=== PATIENT | female | born 1955 | race African-American/Black ===

== ENCOUNTER 2017-08-14 14:07 | Inpatient (IN) | payer MEDICARE ==
[~2017-08-14] VITALS: Ht 167.6 cm; Wt 58.7 kg
[2017-08-14 14:09] VITALS: BP 124/66
--- NOTE | 2017-08-14 15:08 | NUR ---
Patient BIBA to bed 4 at this time.
--- NOTE | 2017-08-14 15:10 | NUR ---
61/F BIBA FOR BS; HI. 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 SKIN IS PINK/WARM/DRY; PT STS PAIN 5TH L TOE AMPUTED. AAOX4 WITH EVEN AND STEADY GAIT; LUNGS CLEAR BL; PT DENIES ANY FEVER, CP, SOB, OR COUGH AT THIS TIME; PATIENT STATES PAIN OF 10/10 AT THIS TIME; PATIENT POSITIONED FOR COMFORT; HOB ELEVATED; BEDRAILS UP X2; BED DOWN. ER MD MADE AWARE OF PT STATUS.
[2017-08-14] MEDS ORDERED: NACL 0.9% 1,000 ML IV ONE ×2 (15:15→17:25)
--- NOTE | 2017-08-14 15:24 | NUR ---
X RAY AT BEDSIDE
--- NOTE | 2017-08-14 15:37 | NUR ---
PT TAKEN TO CT VIA GUJESSIE, ACCOMPANIED BY POWER SUPPLY ENGINEER.
[2017-08-14 15:46] LABS: BASOPHILS # (AUTO) 0.1 K/uL (0.00-0.22); BASOPHILS % (AUTO) 1.3 % (0.0-2.0); EOSINOPHILS # (AUTO) 0.2 K/uL (0-0.4); EOSINOPHILS % (AUTO) 2.3 % (0.0-4.0); HEMOGLOBIN 10.1 g/dL (12.0-16.0); LYMPHOCYTES % (AUTO) 25.5 % (20.5-51.1); MEAN CORPUSCULAR HEMOGLOBIN 24 pg (27-31); MEAN CORPUSCULAR HGB CONC 32 g/dL (33-37); MEAN CORPUSCULAR VOLUME 74 fL (80-94); MONOCYTES # (AUTO) 0.7 K/uL (0.8-1.0); MONOCYTES % (AUTO) 8.7 % (1.7-9.3); NEUTROPHILS % (AUTO) 62.2 % (42.2-75.2); PLATELET COUNT (AUTO) 161 K/uL (140-450); RED CELL DISTRIBUTION WIDTH 13.4 % (11.6-13.7)
[2017-08-14 16:04] LABS: ANION GAP 10.3 (8-16); CREATININE 1.1 mg/dL (0.6-1.3); POTASSIUM 4.3 mmol/L (3.5-5.1); TOTAL BILIRUBIN 0.7 mg/dL (0.0-1.0)
--- NOTE | 2017-08-14 16:41 | NUR ---
Patient appears to be resting comfortably in bed. P 115, BP 147/65 PULSE OX 100% Respirations even and unlabored. WILL CONTINUE TO MONITOR.
[2017-08-14 17:06] LABS: APPEARANCE,URINE CLEAR (CLEAR); BILIRUBIN,URINE NEGATIVE (NEGATIVE); BLOOD, URINE NEGATIVE (NEGATIVE); COLOR,URINE YELLOW (YELLOW); LEUKOCYTE ESTERASE ,URINE NEGATIVE (NEGATIVE); NITRITE, URINE NEGATIVE (NEGATIVE); UGLUCOSE 3+ (NEGATIVE)
[2017-08-14 17:13] LABS: BARBITURATE, URINE NEG. ng/ml (NEG <=200); BENZODIAZEPINE, URINE NEG. ng/mL (NEG <=200); CANNABINOID, URINE NEG. ng/mL (NEG <=50); COCAINE, URINE NEG. ng/mL (NEG <=300); OPIATE, URINE NEG. ng/mL (NEG <=2000); PHENCYCLIDINE SCREEN,URINE NEG. ng/mL (NEG <=25)
--- NOTE | 2017-08-14 17:16 | NUR ---
IVF 0.9 % NSS 2000 ML FINIEHED. BS 357; NOTIFIED Dr. Garcia . 0/9% NSS 1000 ML ORDER PER ORAL.
[2017-08-14 17:29] LABS: RBC,URINE 0-5 (RARE) /HPF (0-5); WBC,URINE 0-5 (RARE) /HPF (0-5)
[2017-08-14] MEDS ORDERED: INSULIN HUMAN REGULAR 100 UNITS/ML 10 ML VIAL SUBQ ONE (17:35)
--- NOTE | 2017-08-14 17:51 | NUR ---
PT URENATED 2 TIMES, BM 1 TIME.
--- NOTE | 2017-08-14 18:05 | NUR ---
PT CAN'T REMEMBER HOME MED; SISTER WILL BRINGMEDS LATER.
--- NOTE | 2017-08-14 18:07 | NUR ---
Patient will be admitted to care of DR BLANKENSHIP. Admited to TELE. Will go to room 110A. Belongings list completed. Report to CASTILLO RIVERS.
--- NOTE | 2017-08-14 18:07 | NUR ---
GAVE REPORT TO CASTILLO RIVERS.
[2017-08-14] MEDS ORDERED: DEXTROSE 50% 50 ML SYR IVP PRN (18:15)
[2017-08-14 18:20] LABS: PROTHROMBIN TIME 10.5 secs (10.8-13.4)
[2017-08-14] MEDS ORDERED: INSULIN DETEMIR 100 UNITS/ML 10 ML VIAL SUBQ SCH (18:24)
[2017-08-14 18:30] VITALS: BP 134/68
[2017-08-14 18:32] LABS: AMYLASE 29 U/L (25-115); FREE T4 (FREE THYROXINE) 7.53 ng/dL (0.76-1.46); HDL CHOLESTEROL 36 mg/dL (40-60); LDL (CALC) 35 mg/dL (60-100); LIPASE 114 U/L (73-393); MAGNESIUM 1.5 mg/dL (1.8-2.4); PHOSPHORUS 4.6 mg/dL (2.5-4.9); TRIGLYCERIDES 191 mg/dL (30-150)
--- NOTE | 2017-08-14 18:40 | NUR ---
PATIENT ARRIVED ON UNIT VIA BED/GURNEY. TRANSFERRED PATIENT TO UNIT BED. PATIENT IN STABLE CONDITION. V/S STABLE, BP: 134/68, HR:105, TEMP:98.7, RR:18, SPO02: 100% ROOM AIR. NO DISTRESS NOTED. RESPIRATIONS EVEN, UNLABORED, ON ROOM AIR. AAOX4, SKIN COLOR APPROPRIATE TO ETHNICITY, WARM TO TOUCH. SKIN IS INTACT, NO WOUNDS/LESIONS NOTED THROUGHOUT BODY. LEFT 5TH TOE AMUPTATION NOTED. PATIENT IS BLIND ON BOTH EYES. IV ON LEFT FA 20 G IS INTACT, PATENT, AND INFUSING WITH IV FLUIDS PER ORDERS. SAFETY MEASURES IN PLACE, CALL LIGHT WITHIN REACH, FALL PREVENTION PER PROTOCOL INITIATED. WILL CONTINUE TO MONITOR.
[2017-08-14 18:54] LABS: THYROID STIMULATING HORMONE < 0.01 uIU/mL (0.34-3.74)
--- NOTE | 2017-08-14 19:25 | NUR ---
GAVE REPORT TO HUMAN RESOURCE ADVISER NURSE FOR CONTINUITY OF CARE. PATIENT IN STABLE CONDITION.
[2017-08-14] MEDS ORDERED: MAG SULF 2000 MG/WATER PREMIX 50 ML IV SCH (19:30)
--- NOTE | 2017-08-14 19:30 | NUR ---
RECEIVED PT FROM DAY SHIFT NURSE PT LEGALLY BLIND AAOX4 COMPLAINT OF GENERALIZED WEAKNESS, IV ON LEFT WRIST INFUSING WELL ON TELEMETRY ST SKIN IS INTACT PT IS ORIENTED TO THE FLOOR CALL LIGHT WITHIN REACH
[2017-08-14] MEDS: NACL 0.9% 1,000 ML IV SCH (19:35)
[2017-08-14] MEDS: DOCUSATE SODIUM 100 MG GELCAP PO SCH (21:10)
[2017-08-14] MEDS: BLOOD GLUCOSE MONITORING 1 DEV DEV FS SCH (21:33)
--- NOTE | 2017-08-14 21:33 | NUR ---
BLOOD SUGAR TEST 254 COVERAGE WITH 6 UNITS HUMALOG SUBQ ON RT ARM, DR RESIDENT CELESTE IS AWARE TO NOT GIVE LEVEMIR AT THIS TIME . PENDING FOR HOME MED RECON
[2017-08-14] MEDS: INSULIN LISPRO SLIDING SCALE 100 UNITS/ML VIAL SUBQ PRN (21:36)
[2017-08-14] MEDS ORDERED: ATA10 PO (21:52)
[2017-08-14] MEDS ORDERED: LOSA50TA39 PO (21:54)
[2017-08-14] MEDS ORDERED: METH-426 PO (22:03)
[2017-08-14] MEDS ORDERED: ASPI81CT89 PO (22:06)
[2017-08-14] MEDS ORDERED: ATEN50TA2 PO (22:07)
[2017-08-14] MEDS ORDERED: HYDR28CR38 TP (22:09)
[2017-08-15] VITALS: BP 134/58
--- NOTE | 2017-08-15 | NUR ---
BILATERAL LE US REPORT WAS NEGATIVE FOR DVT
--- NOTE | 2017-08-15 03:00 | NUR ---
PT HAS BEEN ASSISTING USING BEDPAN VOIDING WELL IV ON LEFT WRIST INFUSING WELL IV FLUIDS DENIES ANY PAIN PT HAS BEEN SLEEPING WELL
[2017-08-15] MEDS: ACETAMINOPHEN 325 MG TAB PO PRN ×2 (03:56→13:28)
[2017-08-15 04:00] VITALS: BP 133/55
--- NOTE | 2017-08-15 05:00 | NUR ---
SPONGE BATH GIVEN, LINEN CHANGED REPOSITIONED PT HAS BEE USING BEDPAN , CONTINENT
--- NOTE | 2017-08-15 06:20 | NUR ---
BLOOD SUGAR TEST 134 NOT COVERAGE
[2017-08-15] MEDS: BLOOD GLUCOSE MONITORING 1 DEV DEV FS SCH ×4 (06:39→20:13)
[2017-08-15 06:47] LABS: BASOPHILS # (AUTO) 0.2 K/uL (0.00-0.22); BASOPHILS % (AUTO) 1.9 % (0.0-2.0); EOSINOPHILS # (AUTO) 0.2 K/uL (0-0.4); EOSINOPHILS % (AUTO) 2.2 % (0.0-4.0); HEMATOCRIT 26.4 % (36-48); HEMOGLOBIN 8.5 g/dL (12.0-16.0); LYMPHOCYTES # (AUTO) 2.5 K/uL (2.5-16.5); LYMPHOCYTES % (AUTO) 29.3 % (20.5-51.1); MEAN CORPUSCULAR HEMOGLOBIN 24 pg (27-31); MEAN CORPUSCULAR HGB CONC 32 g/dL (33-37); MEAN CORPUSCULAR VOLUME 75 fL (80-94); MONOCYTES # (AUTO) 0.7 K/uL (0.8-1.0); MONOCYTES % (AUTO) 8.6 % (1.7-9.3); NEUTROPHILS # (AUTO) 4.8 K/uL (1.8-7.7); PLATELET COUNT (AUTO) 142 K/uL (140-450); RED BLOOD CELL COUNT(AUTO) 3.55 MIL/uL (4.20-5.40); WHITE BLOOD COUNT (AUTO) 8.4 K/uL (4.8-10.8)
[2017-08-15] MEDS ORDERED: FERRIC GLUCONATE 125 MG in NACL 0.9% 100 ML IV SCH (07:00)
[2017-08-15 07:13] LABS: ANION GAP 9.3 (8-16); CARBON DIOXIDE 26.5 mmol/L (21-32); CREATININE 0.8 mg/dL (0.6-1.3); POTASSIUM 3.8 mmol/L (3.5-5.1)
--- NOTE | 2017-08-15 07:15 | NUR ---
RECEIVED REPORT FROM EDUCATION MANAGER RN. PATIENT IS AAOX4, IS LEGALLY BLIND, RESPIRATORY EFFORT IS EVEN AND UNLABORED. HAS TELE MONITOR ON. IS NS INFUSING TO LEFT FA 20G AT 80 ML/HR. IV SITE IS CLEAN, DRY, PATENT AND INTACT. NO SIGNS AND SYMPTOMS OF DISTRESS NOTED AT THIS TIME. DISCUSSED PLAN OF CARE WITH PATIENT AND SHE VERBALIZED UNDERSTANDING. BED IS IN LOWEST POSITION, SIDERAILS UP X2, FALL RISK INITIATED, CALL LIGHT PLACED WITHIN REACH AND LET PATIENT KNOW WHERE IT IS. WILL CONTINUE TO MONITOR.
[2017-08-15 07:24] LABS: MAGNESIUM 1.8 mg/dL (1.8-2.4); PHOSPHORUS 3.7 mg/dL (2.5-4.9)
[2017-08-15 08:00] VITALS: BP 135/55
[2017-08-15] MEDS: ASPIRIN 81 MG TAB.CHEW PO SCH (08:47)
[2017-08-15] MEDS: DOCUSATE SODIUM 100 MG GELCAP PO SCH ×2 (08:47→20:51)
[2017-08-15] MEDS: hydrOXYzine HCL 10 MG TAB PO SCH ×3 (08:48→16:23)
[2017-08-15] MEDS: LOSARTAN 50 MG TAB PO SCH (08:48)
[2017-08-15] MEDS: METHIMAZOLE 5 MG TAB PO SCH ×2 (08:49→20:51)
[2017-08-15] MEDS: ATENOLOL 50 MG TAB PO SCH (08:49)
--- NOTE | 2017-08-15 09:21 | NUR ---
CARLIN NOTE PER ELEMENTARY SCHOOL ART TEACHER KHLOE, REVIEWS SHOULD ONLY BE SENT TO [facility]. INITIAL REVIEW FAXED TO [facility] [phone] CARLIN Campuzano PH# [phone].
[2017-08-15] MEDS: NACL 0.9% 1,000 ML IV SCH ×2 (10:35→19:46)
[2017-08-15 10:48] LABS: TRANSFERRIN 84 mg/dL (200-370)
--- NOTE | 2017-08-15 11:15 | NUR ---
PATIENT SLEEPING. WILL CONTINUE TO MONITOR.
--- NOTE | 2017-08-15 11:30 | NUR ---
BLOOD SUGAR AT 144, NO INSULIN COVERAGE NEEDED AT THIS TIME. NO SIGNS AND SYMPTOMS OF ACUTE DISTRESS NOTED.
[2017-08-15 12:00] VITALS: BP 117/44
[2017-08-15 12:40] LABS: FERRITIN 397 ng/mL (15-150)
--- NOTE | 2017-08-15 13:03 | NUR ---
PATIENT LAYING IN BED, STATED SHE NEEDED TO USE THE BEDPAN. SHE TOLERATED WELL. WILL CONTINUE TO MONITOR.
[2017-08-15 16:00] VITALS: BP 143/64
[2017-08-15] MEDS: HYDROcodone/APAP 7.5/325 MG 1 TAB PO PRN ×2 (16:23→21:26)
[2017-08-15] MEDS: INSULIN LISPRO SLIDING SCALE 100 UNITS/ML VIAL SUBQ PRN ×2 (16:37→20:52)
[2017-08-15] MEDS: ONDANSETRON 4 MG/2 ML VIAL IVP PRN (17:09)
--- NOTE | 2017-08-15 19:35 | NUR ---
RECEIVED REPORT FROM DAY RN. PATIENT WAS SLEEPING BUT EASY TO AROUSE, RESPIRATION EVEN AND UNLABORED, NO S/S OF DISTRESS NOTED, DENIES PAIN AT THIS TIME. IV PATENT AND INTACT, INFUSING NS AT 80ML/HR, CALL LIGHT WITHIN REACH, SAFETY MEASURE ENSURED, WILL CONTINUE TO MONITOR.
[2017-08-15 19:57] VITALS: BP 125/54
--- NOTE | 2017-08-15 21:30 | NUR ---
PATIENT STATED HEADACHE 03/16, NORCO GIVEN ORDERED, CALL LIGHT WITHIN REACH, SAFETY MEASURE ENSURED, WILL CONTINUE TO MONITOR.
--- NOTE | 2017-08-15 23:55 | NUR ---
PATIENT WAS SLEEPING IN BED, EASY TO AROUSE, VITAL SIGNS WITHIN NORMAL RANGE. NO S/S OF ACUTE DISTRESS NOTED, RESPIRATION EVEN AND UNLABORED, CALL LIGHT WITHIN REACH, SAFETY MEASURE ENSURED, WILL CONTINUE TO MONITOR.
[2017-08-16] VITALS: BP 129/57
--- NOTE | 2017-08-16 02:50 | NUR ---
PATIENT IS SLEEPING IN BED, NO S/S OF ACUTE DISTRESS NOTED, RESPIRATION EVEN AND UNLABORED, CALL LIGHT WITHIN REACH, SAFETY MEASURE ENSURED, WILL CONTINUE TO MONITOR.
[2017-08-16 03:58] VITALS: BP 117/57
--- NOTE | 2017-08-16 04:04 | NUR ---
NO CHANGE IN CONDITION, PATIENT WAS SLEEPING IN BED, EASY TO AROUSE. NO S/S OF ACUTE DISTRESS NOTED, RESPIRATION EVEN AND UNLABORED, CALL LIGHT WITHIN REACH, SAFETY MEASURE ENSURED, WILL CONTINUE TO MONITOR.
[2017-08-16] MEDS: ACETAMINOPHEN 325 MG TAB PO PRN (04:27)
--- NOTE | 2017-08-16 06:26 | NUR ---
DR. FRY CAME AND EXAMINED PATIENT AT THE BEDSIDE, NO NEW ORDER RECEIVED AT THIS TIME.
[2017-08-16] MEDS: BLOOD GLUCOSE MONITORING 1 DEV DEV FS SCH ×2 (06:32→11:20)
[2017-08-16 06:38] LABS: BASOPHILS # (AUTO) 0.1 K/uL (0.00-0.22); BASOPHILS % (AUTO) 1.6 % (0.0-2.0); EOSINOPHILS # (AUTO) 0.3 K/uL (0-0.4); EOSINOPHILS % (AUTO) 2.9 % (0.0-4.0); HEMATOCRIT 27.1 % (36-48); HEMOGLOBIN 8.8 g/dL (12.0-16.0); LYMPHOCYTES # (AUTO) 1.9 K/uL (2.5-16.5); LYMPHOCYTES % (AUTO) 22.1 % (20.5-51.1); MEAN CORPUSCULAR HEMOGLOBIN 24 pg (27-31); MEAN CORPUSCULAR HGB CONC 32 g/dL (33-37); MEAN CORPUSCULAR VOLUME 74 fL (80-94); MONOCYTES # (AUTO) 0.7 K/uL (0.8-1.0); MONOCYTES % (AUTO) 8.1 % (1.7-9.3); NEUTROPHILS # (AUTO) 5.7 K/uL (1.8-7.7); NEUTROPHILS % (AUTO) 65.3 % (42.2-75.2); PLATELET COUNT (AUTO) 135 K/uL (140-450); RED BLOOD CELL COUNT(AUTO) 3.65 MIL/uL (4.20-5.40); WHITE BLOOD COUNT (AUTO) 8.7 K/uL (4.8-10.8)
[2017-08-16] MEDS: NACL 0.9% 1,000 ML IV SCH (06:44)
[2017-08-16 06:59] LABS: ANION GAP 10.6 (8-16); CARBON DIOXIDE 26.1 mmol/L (21-32); CREATININE 0.8 mg/dL (0.6-1.3); POTASSIUM 3.7 mmol/L (3.5-5.1)
[2017-08-16 07:15] LABS: MAGNESIUM 1.2 mg/dL (1.8-2.4); PHOSPHORUS 3.6 mg/dL (2.5-4.9)
--- NOTE | 2017-08-16 07:32 | NUR ---
ENDORSED PLAN OF CARE TO DAY RN. PATIENT RESTING IN BED, IN STABLE CONDITION. NO S/S OF DISTRESS.
--- NOTE | 2017-08-16 07:33 | NUR ---
RECEIVED REPORT FROM SENIOR IT BUSINESS ANALYST RN. PATIENT IS AAOX3, IS LEGALLY BLIND. NO SIGNS AND SYMPTOMS OF ACUTE DISTRESS NOTED AT THIS TIME. IV INFUSING NS AT 80 ML/HR, TO RIGHT FOREARM 22G. SITE IS CLEAN, DRY, PATENT AND INTACT. DISCUSSED PLAN OF CARE WITH PATIENT, SHE VERBALIZED UNDERSTANDING. REORIENTED HER TO WHERE THE CALL LIGHT IS, WHERE HER PHONE IS. FALL PRECAUTION MEASURES ARE IN PLACE. BED IN LOWEST POSITION, AND SIDERAILS UP X2, CALL LIGHT WITHIN REACH. WILL CONTINUE TO MONITOR.
[2017-08-16 08:00] VITALS: BP 133/92
[2017-08-16] MEDS: DOCUSATE SODIUM 100 MG GELCAP PO SCH (09:27)
[2017-08-16] MEDS: hydrOXYzine HCL 10 MG TAB PO SCH (09:27)
[2017-08-16] MEDS: LOSARTAN 50 MG TAB PO SCH (09:27)
[2017-08-16] MEDS: ASPIRIN 81 MG TAB.CHEW PO SCH (09:27)
[2017-08-16] MEDS: METHIMAZOLE 5 MG TAB PO SCH (09:28)
[2017-08-16] MEDS: ATENOLOL 50 MG TAB PO SCH (09:28)
--- NOTE | 2017-08-16 09:32 | NUR ---
CM NOTE INITIAL REVIEW FAXED TO [facility] [phone] CM KACIE Campuzano PH# [phone].
[2017-08-16] MEDS: ONDANSETRON 4 MG/2 ML VIAL IVP PRN (10:22)
[2017-08-16] MEDS ORDERED: HUMSLIDE SUBQ (11:08)
[2017-08-16] MEDS ORDERED: INSU-1331 SC (11:08)
[2017-08-16] MEDS: INSULIN LISPRO SLIDING SCALE 100 UNITS/ML VIAL SUBQ PRN (11:27)
--- NOTE | 2017-08-16 13:40 | NUR ---
GAVE PATIENT INFORMATION ON DISCHARGE INSTRUCTIONS. LET HER KNOW SIGNS AND SYMPTOMS TO SEEK EMERGENCY CARE FOR. TWIN SISTER WAS PRESENT DURING INSTRUCTIONS. LET THEM KNOW THAT THERE ARE 2 [facility]. BOTH VERBALIZED UNDERSTANDING. PACKET GIVEN TO PATIENT. IV SITE DISCONTINUED, CATHETER INTACT. APPLIED DRESSING TO SITE, CLEAN, DRY AND INTACT. REMOVED ID BANDS FROM PATIENT. WHEELED PATIENT OUT. PATIENT IS STABLE AND HAS NO SIGNS AND SYMPTOMS OF ACUTE DISTRESS.
[2017-08-16] MEDS ORDERED: INSULIN DETEMIR 100 UNITS/ML 10 ML VIAL SUBQ SCH (21:00)
== END 2017-08-16 13:40 | disposition home or self-care (01) | DRG 637 ==
LOC: MED 14:07 → MTU 17:56
PROVIDERS: ADMIT Family Medicine; ATTEND Family Medicine
DX: E11.00 Type 2 diabetes mellitus with hyperosmolarity without nonketotic hyperglycemic-hyperosmolar coma (NKHHC) (principal); N17.0 Acute kidney failure with tubular necrosis; E44.0 Moderate protein-calorie malnutrition; E72.51 Non-ketotic hyperglycinemia; J98.11 Atelectasis; E11.65 Type 2 diabetes mellitus with hyperglycemia; E11.51 Type 2 diabetes mellitus with diabetic peripheral angiopathy without gangrene; D63.8 Anemia in other chronic diseases classified elsewhere; E83.42 Hypomagnesemia; E83.52 Hypercalcemia; E78.2 Mixed hyperlipidemia; D50.9 Iron deficiency anemia, unspecified; J44.9 Chronic obstructive pulmonary disease, unspecified; I10 Essential (primary) hypertension; H54.7 Unspecified visual loss; E11.319 Type 2 diabetes mellitus with unspecified diabetic retinopathy without macular edema; Z89.422 Acquired absence of other left toe(s); Z85.44 Personal history of malignant neoplasm of other female genital organs; Z88.0 Allergy status to penicillin; Z68.20 Body mass index [BMI] 20.0-20.9, adult; Z87.442 Personal history of urinary calculi
CPT/HCPCS: 36415; 70450; 71010; 80048; 80053; 80305; 81001; 82150; 82550; 82728; 82948; 83036; 83540; 83690; 83735; 83880; 84100; 84439; 84443; 84484; 85025; 85045; 85610; 85730; 87081; 93005; 93925; 93970; 96360; 96361; 96372; 99285; J1815; J2405; J2916; J3475; J7030; Q0092; Q0163

== ENCOUNTER 2017-08-28 11:01 | Inpatient (IN) | payer MEDICARE ==
[~2017-08-28] VITALS: Ht 167.6 cm; Wt 45.4 kg
[~2017-08-28 11:01] MED LIST: ASPI81CT89 PO; ATA10 PO; ATEN50TA2 PO; HUMSLIDE SUBQ; HYDR28CR38 TP; INSU-1331 SC; LOSA50TA39 PO; METH-426 PO
--- NOTE | 2017-08-28 11:01 | NUR ---
Patient was BIBA and taken to bed 02 via gurney.
[2017-08-28 11:02] VITALS: BP 155/70
[2017-08-28] MEDS ORDERED: METOCLOPRAMIDE 10 MG/2 ML INJ VIAL IVP ONE (11:05)
[2017-08-28] MEDS ORDERED: INSULIN HUMAN REGULAR 100 UNITS/ML 10 ML VIAL IVP ONE (11:05)
[2017-08-28] MEDS ORDERED: NACL 0.9% 1,000 ML IV ONE ×2 (11:05→12:30)
--- NOTE | 2017-08-28 11:05 | NUR ---
61F BIBA FROM [facility] C/O NAUSEA AND VOMITTING X 2 HOURS PRIOR TO ARRIVAL TO ER; PT VOMITING AT THIS TIME; WHEN ASKED ABOUT PAIN, PT STATES " I'M JUST SHAKY"; ABDOMEN SOFT, NON-TENDER, ACTIVE BOWEL SOUNDS X 4 QUADRANTS; PT AA&OX3, PERRLA, BL LUNG SOUNDS CLEAR, RR EVEN/UNLABORED, SKIN IS WARM/DRY/INTACT AT THIS TIME; PT NOTED WITH NON-PITTING EDEMA TO BL ANKLES; PT NOTED WITH TACHYCARDIA ON THE MONITOR AT THIS TIME; PT PLACED ON MONITOR, RESTING IN BED WITH HOB ELEVATED AND IN LOWEST POSITOIN; POSITIONED FOR COMFORT; ER MD MADE AWARE OF STATUS. WILL CONTINUE TO MONITOR.
--- NOTE | 2017-08-28 11:10 | NUR ---
PT TOOK A SIP OF TYLENOL 650 ML, AND STATES " I DON'T WANT IT ANYMORE"; ER MD DR. NELSON NOTIFIED.
[2017-08-28] MEDS ORDERED: ACETAMINOPHEN 650 MG/20.3 ML UDC ONE ×2 (11:14→11:30)
[2017-08-28] MEDS ORDERED: ACETAMINOPHEN 650 MG SUPP RC ONE (11:20)
[2017-08-28] MEDS ORDERED: VANCOMYCIN 1,000 MG in DEXTROSE 5% 250 ML IV ONE (11:55)
[2017-08-28] MEDS ORDERED: ONDANSETRON 4 MG/2 ML VIAL IVP ONE (11:55)
[2017-08-28] MEDS ORDERED: DILTIAZEM 25 MG/5 ML VIAL IVP ONE (11:55)
[2017-08-28 12:03] LABS: HEMATOCRIT 33.4 % (36-48); MEAN CORPUSCULAR HEMOGLOBIN 24 pg (27-31); MEAN CORPUSCULAR HGB CONC 33 g/dL (33-37); MEAN CORPUSCULAR VOLUME 73 fL (80-94); RED BLOOD CELL COUNT(AUTO) 4.55 MIL/uL (4.20-5.40); WHITE BLOOD COUNT (AUTO) 11.4 K/uL (4.8-10.8)
[2017-08-28 12:04] LABS: PLATELET COUNT (AUTO) 237 K/uL (140-450); RED CELL DISTRIBUTION WIDTH 14.3 % (11.6-13.7)
[2017-08-28] MEDS ORDERED: VANCOMYCIN 1,000 MG VIAL ONE (12:11)
[2017-08-28 12:14] LABS: EOSINOPHILS % (AUTO) 0.4 % (0.0-4.0); LYMPHOCYTES # (AUTO) 0.7 K/uL (2.5-16.5); LYMPHOCYTES % (AUTO) 6.2 % (20.5-51.1); MONOCYTES # (AUTO) 0.1 K/uL (0.8-1.0); MONOCYTES % (AUTO) 1.1 % (1.7-9.3); NEUTROPHILS # (AUTO) 10.5 K/uL (1.8-7.7); NEUTROPHILS % (AUTO) 92.3 % (42.2-75.2)
[2017-08-28 12:20] LABS: ANION GAP 17.4 (8-16); CHLORIDE 104 mmol/L (98-107); GLUCOSE 384 mg/dL (74-106); POTASSIUM 4.4 mmol/L (3.5-5.1); SODIUM SERUM 143 mmol/L (136-145); UREA NITROGEN, BLOOD 49 mg/dL (7-18)
[2017-08-28 12:21] LABS: ALBUMIN 3.4 g/dL (3.4-5.0); ASPARTATE AMINOTRANSFERASE 8 U/L (15-37); CREATININE 1.5 mg/dL (0.6-1.3); GFR ARICAN-AMERICAN 46 mL/min (>90); LIPASE 150 U/L (73-393); TOTAL BILIRUBIN 1.4 mg/dL (0.0-1.0)
[2017-08-28 12:24] LABS: ACETONE, SERUM NEGATIVE (NEGATIVE)
--- NOTE | 2017-08-28 12:40 | NUR ---
Patient was taken to CT via [facility].
--- NOTE | 2017-08-28 13:00 | NUR ---
Patient is back from CT via [facility].
[2017-08-28] MEDS ORDERED: NACL 0.9% 1,000 ML IV SCH (13:58)
[2017-08-28] MEDS ORDERED: HYDROcodone/APAP 7.5/325 MG 1 TAB PO PRN (14:00)
[2017-08-28] MEDS ORDERED: ONDANSETRON 4 MG/2 ML VIAL IVP PRN (14:00)
[2017-08-28 14:16] LABS: BILIRUBIN,URINE NEGATIVE (NEGATIVE); BLOOD, URINE 2+ (NEGATIVE); LEUKOCYTE ESTERASE ,URINE NEGATIVE (NEGATIVE); NITRITE, URINE NEGATIVE (NEGATIVE); UGLUCOSE 3+ (NEGATIVE)
[2017-08-28 14:18] LABS: APPEARANCE,URINE HAZY (CLEAR); COLOR,URINE STRAW (YELLOW)
[2017-08-28] MEDS ORDERED: DEXTROSE 50% 50 ML SYR IVP PRN (14:20)
[2017-08-28 14:27] LABS: RBC,URINE NONE SEEN /HPF (0-5); WBC,URINE 0-5 (RARE) /HPF (0-5); YEAST,URINE Moderate /HPF (None Seen)
[2017-08-28 14:31] LABS: BARBITURATE, URINE NEG. ng/ml (NEG <=200); BENZODIAZEPINE, URINE NEG. ng/mL (NEG <=200); CANNABINOID, URINE NEG. ng/mL (NEG <=50); COCAINE, URINE NEG. ng/mL (NEG <=300); OPIATE, URINE NEG. ng/mL (NEG <=2000); PHENCYCLIDINE SCREEN,URINE NEG. ng/mL (NEG <=25)
[2017-08-28 14:36] LABS: PROTHROMBIN TIME 10.2 secs (10.8-13.4)
--- NOTE | 2017-08-28 14:40 | NUR ---
PT IV to right hand dislodged. IV removed, catheter intact and site benign. Applied folded 4x4 gauze and tape to stop bleeding. Pt states no pain to site at this time. Will continue to monitor.
[2017-08-28 14:55] LABS: AMYLASE 59 U/L (25-115); CHOL/HDL RATIO 3.2 (1-4.5); FREE T4 (FREE THYROXINE) 7.15 ng/dL (0.76-1.46); HDL CHOLESTEROL 38 mg/dL (40-60); LDL (CALC) 38 mg/dL (60-100); THYROID STIMULATING HORMONE < 0.01 uIU/mL (0.34-3.74); TRIGLYCERIDES 222 mg/dL (30-150)
[2017-08-28] MEDS ORDERED: LORazepam 2 MG/ML VIAL IVP ONE (15:00)
--- NOTE | 2017-08-28 15:00 | NUR ---
PT APPEARS TO BE RESTING COMFORTABLY IN BED; RR EVEN/UNLABORED; POSITIONED FOR COMFORT; WILL CONTINUE TO MONITOR.
[2017-08-28] MEDS ORDERED: LORazepam 2 MG/ML VIAL ONE (15:11)
--- NOTE | 2017-08-28 15:24 | NUR ---
LAB AT BEDSIDE.
--- NOTE | 2017-08-28 15:38 | NUR ---
REPORT GIVEN TO CASTILLO OLIVA; RN ASKED FOR 10 MINUTES TO PREPARE ROOM.
--- NOTE | 2017-08-28 15:50 | NUR ---
Patient will be admitted to care of DR. WONG. Admited to TELEMETRY. Will go to room 123B. Belongings list completed. Report to CASTILLO RWIGHT.
--- NOTE | 2017-08-28 16:10 | NUR ---
RECEIVED PATIENT FROM ER. PATIENT BROUGHT IN BY MARIAM. PATIENT IS DROWSY, AWAKE BY NAME. NO SIGNS AND SYMPTOMS OF DISTRESS NOTED. IV SITE NOTED ON LEFT HAND 24 G, ASYMPTOMATIC, INTACT AND PATENT. BED IN LOWEST POSITION, SEMIFOWLER, SIDE RAILS UP AND CALL LIGHT WITHIN REACH. FALL PRECAUTIONS IN PLACE. WILL CONTINUE TO MONITOR.
[2017-08-28] MEDS: BLOOD GLUCOSE MONITORING 1 DEV DEV FS SCH ×2 (16:30→21:29)
[2017-08-28] MEDS: hydrOXYzine HCL 10 MG TAB PO SCH (17:00)
--- NOTE | 2017-08-28 18:00 | NUR ---
PT IS TOO DROWSY TO TAKE MEDICATION. PT OPENED EYE TO NAME. BUT PT COULD NOT DRINK WATER OR SAFELY TAKE ORAL MEDICATION.
[2017-08-28 18:21] VITALS: BP 142/58
[2017-08-28] MEDS ORDERED: FLUCONAZOLE 100 MG TAB PO SCH (18:30)
--- NOTE | 2017-08-28 19:30 | NUR ---
ENDORSED PT TO NIGHT RN, PT IN STABLE CONDITION. PT'S O2 2L VIA NC, O2 SAT 100%. PT OPEN EYES TO NAME, ORIENTED TO PLACE. BUT STILL DROWSY.
[2017-08-28] MEDS: INSULIN LISPRO SLIDING SCALE 100 UNITS/ML VIAL SUBQ PRN (19:48)
[2017-08-28 20:00] VITALS: BP 135/91
--- NOTE | 2017-08-28 20:00 | NUR ---
RECEIVED LETHARGIC,STUPOROUS, RESPONDS TO SHAKING.VERBALLY RESPONSIVE BUT IS MUMBLING WORDS. (+)FEVER 102.7. COOLOING MEASURES RENDERED. WILL GIVE TYLENOL. NOT IN ACUTE DISTRESS. NO PAIN OR DISCOMFORT NOTED. WITH IV FLUID. NS INFUSING AT 90 ML/HR VIA LEFT HAND #20 IV LINE. OQM6=075% ON 2 LPM O2 VIA NC. SINUS TACHYCARDIA @ 117/MIN ON THE MONITOR. WILL CLOSELY MONITOR. NEEDS ATTENDED.
[2017-08-28] MEDS: DOCUSATE SODIUM 100 MG GELCAP PO SCH (20:41)
[2017-08-28] MEDS: METHIMAZOLE 5 MG TAB PO SCH (20:41)
[2017-08-28] MEDS: PANTOPRAZOLE 40 MG INJ VIAL IVP SCH (20:41)
[2017-08-28] MEDS: metroNIDAZOLE 500 MG/NS PREMIX 100 ML IV SCH (20:42)
[2017-08-28] MEDS: ACETAMINOPHEN 325 MG TAB PO PRN (20:43)
--- NOTE | 2017-08-28 20:43 | NUR ---
TYLENOL 650 MG AND OTHER DUE MEDICATIONS GIVEN CRUSHED MIXED WITH SMALL AMOUNT OF APPLE SAUCE.
[2017-08-28] MEDS: INSULIN DETEMIR 100 UNITS/ML 10 ML VIAL SUBQ SCH (21:00)
--- NOTE | 2017-08-28 21:29 | NUR ---
[id number] INSULIN COVERGAE NEEDED DUE TO PATIENT TO STUPOROUS AND LETHARGIC TO EAT FOOD BY MOUTH. WILL CLOSELY MONITOR.
[2017-08-29] VITALS: BP 128/55
--- NOTE | 2017-08-29 | NUR ---
TEMPERATURE BETTER (100.4). TYLENOL NOT DUE AT THIS TIME. COOLING MEASURES CONTINUED. SIDE RAILS UP, CALL LIGHT WITHIN REACH. WILL CONTINUE TO MONITOR.
[2017-08-29] MEDS: ACETAMINOPHEN 325 MG TAB PO PRN ×2 (02:58→12:41)
--- NOTE | 2017-08-29 02:58 | NUR ---
TYLENOL 650 MG PO GIVEN FOR PMSU=045.7.
[2017-08-29 04:00] VITALS: BP 139/48
--- NOTE | 2017-08-29 04:00 | NUR ---
ASLEEP,NOT IN ANY KIND OF DISTRESS. TEMPERATURE BETTER. 99.8. WILL CONTINUE TO MONITOR. NEEDS ATTENDED.
[2017-08-29] MEDS: metroNIDAZOLE 500 MG/NS PREMIX 100 ML IV SCH ×3 (05:00→20:11)
[2017-08-29] MEDS: BLOOD GLUCOSE MONITORING 1 DEV DEV FS SCH ×4 (06:11→20:10)
--- NOTE | 2017-08-29 06:11 | NUR ---
[id number]. NO INSULIN COVERAGE NEEDED.
[2017-08-29 06:35] LABS: BASOPHILS % (AUTO) 0.5 % (0.0-2.0); EOSINOPHILS % (AUTO) 0.5 % (0.0-4.0); HEMATOCRIT 27.5 % (36-48); LYMPHOCYTES # (AUTO) 0.6 K/uL (2.5-16.5); LYMPHOCYTES % (AUTO) 12.4 % (20.5-51.1); MEAN CORPUSCULAR HEMOGLOBIN 24 pg (27-31); MEAN CORPUSCULAR HGB CONC 33 g/dL (33-37); MEAN CORPUSCULAR VOLUME 74 fL (80-94); MONOCYTES # (AUTO) 0.4 K/uL (0.8-1.0); MONOCYTES % (AUTO) 8.5 % (1.7-9.3); NEUTROPHILS % (AUTO) 78.1 % (42.2-75.2); PLATELET COUNT (AUTO) 179 K/uL (140-450); RED BLOOD CELL COUNT(AUTO) 3.71 MIL/uL (4.20-5.40); RED CELL DISTRIBUTION WIDTH 13.4 % (11.6-13.7)
--- NOTE | 2017-08-29 07:05 | NUR ---
ENDORSED CARE TO ANTONIO CHONG.
--- NOTE | 2017-08-29 07:10 | NUR ---
RECEIVED PT REPORT AT BEDSIDE FROM NIGHT NURSE. PT IS LETHARGIC, DROWSY. WHEN SPOKEN TO PT DOES NOT ANSWER BACK TO QUESTIONS BEING ASKED. PT SHOWS NO S/S OF ACUTE DISTRESS ON ROOM AIR. PT SKIN IS INTACT. IV NOTED ON THE LT HAND WITH IVF'S INFUSING WELL. IV IS PATENT AND INTACT WITH NO SIGNS OF INFILTRATION. ON TELE MONITOR. PT WAS EXPLAINED POC FOR TODAY HOWEVER DOES NOT VERBALIZE UNDERSTANDING. THE BED IS IN LOW POSITION WITH CALL LIGHT WITHIN REACH.WILL CONTINUE TO MONITOR.
[2017-08-29 07:36] LABS: ANION GAP 14.4 (8-16); CARBON DIOXIDE 25.4 mmol/L (21-32); POTASSIUM 3.8 mmol/L (3.5-5.1)
[2017-08-29 07:44] LABS: MAGNESIUM 1.6 mg/dL (1.8-2.4)
[2017-08-29 08:00] VITALS: BP 134/62
[2017-08-29] MEDS: NACL 0.45% 1,000 ML IV SCH ×2 (08:30→22:48)
--- NOTE | 2017-08-29 08:30 | NUR ---
PT'S SISTER AT BEDSIDE. PT IS SOILED. PT WAS GIVEN PERINEAL CARE AND REPOSITIONED. PT'S SISTER STATED, " SHE HAS BEEN SOILED SINCE LAST NIGHT." JEANNE VELÁSQUEZ AT BEDSIDE. ALL NEEDS MET AT THIS TIME WILL CONTINUE TO MONITOR.
--- NOTE | 2017-08-29 09:15 | NUR ---
PT BEING SEEN BY TECH.
[2017-08-29] MEDS: PANTOPRAZOLE 40 MG INJ VIAL IVP SCH ×2 (09:40→20:12)
[2017-08-29] MEDS: ASPIRIN 81 MG TAB.CHEW PO SCH (09:40)
[2017-08-29] MEDS: LEVOFLOXACIN 750 MG/D5W PREMIX 150 ML IV SCH (09:40)
[2017-08-29] MEDS: ATENOLOL 50 MG TAB PO SCH (09:41)
[2017-08-29] MEDS: hydrOXYzine HCL 10 MG TAB PO SCH ×3 (09:41→17:35)
[2017-08-29] MEDS: METHIMAZOLE 5 MG TAB PO SCH ×2 (09:41→20:11)
[2017-08-29] MEDS: LOSARTAN 50 MG TAB PO SCH (09:42)
[2017-08-29] MEDS: LACTOBACILLUS RHAMNOSUS GG 1 EACH CAP PO SCH (09:42)
[2017-08-29] MEDS: DOCUSATE SODIUM 100 MG GELCAP PO SCH ×2 (09:45→20:11)
--- NOTE | 2017-08-29 10:34 | NUR ---
PATIENT HAS BEEN SCREENED AND CATEGORIZED HIGH NUTRITION RISK. PATIENT WILL BE SEEN WITHIN 1-2 DAYS OF ADMISSION. 08/29/17 - 08/30/17 SELWYN PAULINO MBA, RD
[2017-08-29 12:00] VITALS: BP 132/55
[2017-08-29] MEDS: INSULIN LISPRO SLIDING SCALE 100 UNITS/ML VIAL SUBQ PRN (12:29)
--- NOTE | 2017-08-29 12:41 | NUR ---
ADMINISTERED SCHEDULED MEDICATIONS. IV ABX INFUSING WELL. PT HAD 100.2 TEMP GAVE TYLENOL 650 MG PO AND COOLING MEASURES. WILL CONTINUE TO MONITOR.
--- NOTE | 2017-08-29 13:00 | NUR ---
PT HAD TWO LOOSE LIGHT BROWN STOOLS TODAY. STOOL SPECIMEN WAS COLLECTED AND SENT TO LAB FOR CX.
--- NOTE | 2017-08-29 14:00 | NUR ---
PT HAD ANOTHER LOOSE STOOL. PT WAS REPOSITIONED AND GIVEN PERINEAL CARE. PT RESTING IN BED IN LOW POSITION WITH CALL LIGHT WITHIN REACH.
[2017-08-29] MEDS ORDERED: BENZOCAINE/MENTHOL 1 LOZ MM PRN (14:40)
--- NOTE | 2017-08-29 15:00 | NUR ---
DR FRY AWARE PT HAS RECEIVED STOOL SOFTNER IN THE LAST 48 HRS AND DOES NOT MEET CRITERIA FOR CDIFF CX TO BE COLLECTED DR TO PLACE IN ORDERS.
[2017-08-29 16:00] VITALS: BP 105/70
--- NOTE | 2017-08-29 16:00 | NUR ---
PT HAD LOOSE STOOL. PT WAS GIVEN PERINEAL CARE AND REPOSITIONED. WILL CONTINUE TO MONITOR.
--- NOTE | 2017-08-29 17:39 | NUR ---
ADMINISTERED SCHEDULED MEDICATIONS. PT TOLERATED WELL. PT SWALLOWED CRUSHED MEDICATION IN APPLESAUCE WITH NO DIFFICULTY. PT'S NEEDS MET AT THIS TIME WILL CONTINUE TO MONITOR.
--- NOTE | 2017-08-29 18:00 | NUR ---
PT IV FOUND DISCONTINUED WITH CANNULA INTACT. NEW IV ATTEMPTED ON THE LT FA 24 G WITH IVF'S INFUSING WELL.
--- NOTE | 2017-08-29 19:27 | NUR ---
RECEIVED FROM AM RN IN BED AWAKE AND STATED TRYING TO GO TO SLEEP. ABLE TO VERBALIZE SIMPLE NEEDS. NO SOB. DENIES PAIN AT TH IS TIME. CALL LIGHT WITH IN REACH. NO RESTLESSNESS NOTED. BED ALARM ON. TELEMETRY MONITORING.
[2017-08-29 19:54] VITALS: BP 129/62
[2017-08-29] MEDS: INSULIN DETEMIR 100 UNITS/ML 10 ML VIAL SUBQ SCH (20:15)
--- NOTE | 2017-08-29 21:22 | NUR ---
PT. SLEEPING AT THIS TIME POST PAIN RELIEVER. SISTER IN HERE VISITING. PT. NOTED ABLE TO VERBALIZE NEEDS WELL. A/O X 4. REMINDED CALL LIGHT BESIDE HER IN CASE SHE NEEDS HELP OR IF IN PAIN.
--- NOTE | 2017-08-29 23:57 | NUR ---
SLEEPING. TELEMETRY MONITORING. WAKES UP EASILY WHEN TOUCHED. CALL LIGHT WITH IN REACH AT ALL TIMES. BED ALARM ON.
[2017-08-30 00:35] VITALS: BP 126/58
--- NOTE | 2017-08-30 02:00 | NUR ---
NEEDS ANTICIPATED AND WILL BE MET. ABLE TO VERBALIZE NEEDS WELL.
--- NOTE | 2017-08-30 04:00 | NUR ---
SLEEPING. WAKES UP EASILY WHEN TOUCHED. NEEDS WILL BE ANTICIPATED AND MET. VERBALIZES SIMPLE NEEDS.
[2017-08-30 05:02] VITALS: BP 138/58
[2017-08-30] MEDS: metroNIDAZOLE 500 MG/NS PREMIX 100 ML IV SCH ×3 (05:26→20:33)
[2017-08-30] MEDS: BLOOD GLUCOSE MONITORING 1 DEV DEV FS SCH ×4 (06:06→20:33)
--- NOTE | 2017-08-30 07:08 | NUR ---
SLEEPING. ABLE TO SLEEP WELL THIS SHIFT. TELEMETRY MONITORING. NO SOB. AM PERSONAL HYGIENE RENDERED BY CNAS. TURNED Q 2H AND WITH PILLOW SUPPORT PROVIDED.
[2017-08-30 07:14] LABS: BASOPHILS # (AUTO) 0.2 K/uL (0.00-0.22); BASOPHILS % (AUTO) 3.3 % (0.0-2.0); EOSINOPHILS % (AUTO) 0.6 % (0.0-4.0); HEMATOCRIT 27.3 % (36-48); HEMOGLOBIN 8.7 g/dL (12.0-16.0); LYMPHOCYTES # (AUTO) 0.7 K/uL (2.5-16.5); LYMPHOCYTES % (AUTO) 14.7 % (20.5-51.1); MEAN CORPUSCULAR HEMOGLOBIN 23 pg (27-31); MEAN CORPUSCULAR HGB CONC 32 g/dL (33-37); MEAN CORPUSCULAR VOLUME 74 fL (80-94); MONOCYTES # (AUTO) 0.6 K/uL (0.8-1.0); MONOCYTES % (AUTO) 11.5 % (1.7-9.3); NEUTROPHILS # (AUTO) 3.4 K/uL (1.8-7.7); NEUTROPHILS % (AUTO) 69.9 % (42.2-75.2); PLATELET COUNT (AUTO) 138 K/uL (140-450); RED BLOOD CELL COUNT(AUTO) 3.71 MIL/uL (4.20-5.40); RED CELL DISTRIBUTION WIDTH 12.8 % (11.6-13.7); WHITE BLOOD COUNT (AUTO) 4.9 K/uL (4.8-10.8)
--- NOTE | 2017-08-30 07:15 | NUR ---
PATIENT CLEANED AND REPOSITIONED FOR COMFORT
--- NOTE | 2017-08-30 07:15 | NUR ---
RECEIVED PATIENT REPORT AT BEDSIDE. PATIENT AWAKE AND ALERT. NO C/O PAIN AT THIS TIME. PATIENT ON ROOM AIR. NO SOB. PATIENT HAS DIARRHEA. STOOL MODERATED IN AMOUNT, BROWN AND SOFT IN CONSISTENCY. WILL PROVIDE PERINEAL CARE. IV LINE NOTED TO THE LEFT FOREARM WITH IVF INFUSING WELL. PATIENT ON TELE MONITORING. BED LOWERED WITH CALL LIGHT WITHIN REACH. WILL CONTINUE TO MONITOR
[2017-08-30 07:45] LABS: ANION GAP 16.5 (8-16); CARBON DIOXIDE 21.1 mmol/L (21-32); CREATININE 0.9 mg/dL (0.6-1.3); POTASSIUM 3.6 mmol/L (3.5-5.1)
[2017-08-30] MEDS ORDERED: ALBUTEROL SULFATE/IPRATROPIU 3 ML SOL IH PRN (07:50)
[2017-08-30 08:00] VITALS: BP 121/39
--- NOTE | 2017-08-30 08:00 | NUR ---
PAGED ENGINEERING DEPARTMENT TO FIX CALL LIGHT REMOTE IN THE PATIENT'S ROOM
[2017-08-30] MEDS ORDERED: guaiFENesin/CODEINE 100/10MG 5 ML UDC PO SCH (08:12)
[2017-08-30] MEDS ORDERED: FERRIC GLUCONATE 125 MG in NACL 0.9% 100 ML IV SCH ×2 (08:13→15:47)
[2017-08-30 08:24] LABS: MAGNESIUM 1.1 mg/dL (1.8-2.4); PHOSPHORUS 2.9 mg/dL (2.5-4.9)
[2017-08-30] MEDS: DOCUSATE SODIUM 100 MG GELCAP PO SCH ×2 (08:32→08:44)
[2017-08-30] MEDS: hydrOXYzine HCL 10 MG TAB PO SCH ×3 (08:33→16:48)
[2017-08-30] MEDS: LOSARTAN 50 MG TAB PO SCH (08:33)
[2017-08-30] MEDS: ASPIRIN 81 MG TAB.CHEW PO SCH (08:33)
[2017-08-30] MEDS: ATENOLOL 50 MG TAB PO SCH (08:33)
[2017-08-30] MEDS: METHIMAZOLE 5 MG TAB PO SCH ×2 (08:33→20:33)
[2017-08-30] MEDS: LACTOBACILLUS RHAMNOSUS GG 1 EACH CAP PO SCH (08:34)
[2017-08-30] MEDS: PANTOPRAZOLE 40 MG INJ VIAL IVP SCH ×2 (08:34→20:33)
[2017-08-30] MEDS: ALBUTEROL SULFATE/IPRATROPIU 3 ML SOL IH SCH ×3 (09:10→18:31)
--- NOTE | 2017-08-30 09:15 | NUR ---
PATIENT ASLEEP IN BED. NO S/S OF DISTRESS NOTED
[2017-08-30] MEDS ORDERED: MAG SULF 2000 MG/WATER PREMIX 50 ML IV SCH (09:51)
[2017-08-30] MEDS: NACL 0.45% 1,000 ML IV SCH (11:12)
[2017-08-30 12:00] VITALS: BP 121/39
[2017-08-30] MEDS ORDERED: ALBUTEROL SULFATE/IPRATROPIU 3 ML SOL IH SCH (12:00)
--- NOTE | 2017-08-30 13:06 | NUR ---
08/30/17 RD INITIAL ASSESSMENT COMPLETED. PLEASE REFER TO NUTRITION PROGRESS NOTES UNDER CARE ACTIVITY FOR ESTIMATED NUTRITIONAL NEEDS. RD RECOMMENDATIONS: 1- RECOMMEND CONTINUE 45G CCHO DIET 2- ADD SUGAR FREE HEALTHSHAKES TID 3- ASSIST / ENCOURAGE INCREASED PO INTAKE WITH MEALS 4- F/U 2-3 DAYS; HR SELWYN PAULINO MBA, RD
--- NOTE | 2017-08-30 13:30 | NUR ---
PATIENT ASLEEP IN BED. NO S/S OF DISTRESS NOTED
[2017-08-30 16:00] VITALS: BP 126/47
--- NOTE | 2017-08-30 19:28 | NUR ---
PATIENT REPORT GIVEN AT BEDSIDE. PATIENT ENDORSED IN STABLE CONDITION
--- NOTE | 2017-08-30 19:30 | NUR ---
RECEIVED FROM AM RN IN BED SLEEPING . VITAL SIGNS TAKEN. WAKES UP EASILY WHEN TOUCHED. CALL LIGHT WITH HER . BED ALARM ON AND WILL BE TURNED Q 2H. ASSISTED WITH ADLS AND ABLE TO VERBALIZE SIMPLE NEEDS. AFEBRILE. TELEMETRY MONITORING.
[2017-08-30 20:19] VITALS: BP 127/48
[2017-08-30] MEDS: INSULIN DETEMIR 100 UNITS/ML 10 ML VIAL SUBQ SCH (20:35)
--- NOTE | 2017-08-30 21:00 | NUR ---
PT. CHECKED. SLEEPING. TURNED TO SIDES Q 2H. WAKES UP EASILY WHEN TOUCHED. PROVIDED W/ DRINKING WATER REQUESTED. TOLERATED WELL. AFEBRILE. NEEDS WILL BE ANTICIPATED AND WILL BE MET.
--- NOTE | 2017-08-30 23:00 | NUR ---
PT'S SISTER CAME IN EARLIER AND PROVIDED WITH ANSWERS FOR EVERY QUESTIONS SHE HAD. NO COMPLAINTS DONE. PT.S NEEDS WILL BE ANTICIPATED AND WILL BE MET. CNAS CHECKED ON PT. KEPT DRY AND CLEAN. TELEMETRY MONITORING.
[2017-08-31 00:47] VITALS: BP 128/60
--- NOTE | 2017-08-31 01:06 | NUR ---
SLEEPING WELL. NO RESTLESSNESS. TELEMETRY MONITORING.
--- NOTE | 2017-08-31 02:30 | NUR ---
PT. SLEEPING. NO RESTLESSNESS. TELEMETRY MONITORING. NO COMPLAINTS DONE AT THIS TIME.
[2017-08-31] MEDS: NACL 0.45% 1,000 ML IV SCH ×2 (03:24→13:17)
--- NOTE | 2017-08-31 03:56 | NUR ---
PT. CHECKED BY CNAS. CHANGED RT WET. NO PAIN COMPLAINT DONE. KEPT DRY AND COMFORTABLE. ON TELEMETRY MONITORING. AFEBRILE.
[2017-08-31 04:06] VITALS: BP 136/55
[2017-08-31] MEDS: metroNIDAZOLE 500 MG/NS PREMIX 100 ML IV SCH ×3 (05:17→13:31)
[2017-08-31] MEDS: BLOOD GLUCOSE MONITORING 1 DEV DEV FS SCH ×4 (05:23→21:15)
--- NOTE | 2017-08-31 06:15 | NUR ---
PT. AM PERSONAL HYGIENE RENDERED BY CNAS. NO COMPLAINTS DONE. TELEMETRY MONITORING. SISTER IN HERE. STATED SHE IS HERE EARLY TO FEED HER SISTER .
[2017-08-31] MEDS: ALBUTEROL SULFATE/IPRATROPIU 3 ML SOL IH SCH ×3 (06:20→18:00)
--- NOTE | 2017-08-31 07:15 | NUR ---
RECEIVED PATIENT REPORT AT BEDSIDE. PATIENT ASLEEP BUT AROUSABLE. NO S/S OF DISTRESS NOTED. PATIENT ON ROOM AIR. NO SOB. IV ON THE LEFT FA INTACT WITH IVF INFUSING WELL. PATIENT ON TELE MONITORING. BED LOWERED WITH CALL LIGHT WITHIN REACH. WILL CONTINUE TO MONITOR
[2017-08-31 07:50] LABS: BASOPHILS # (AUTO) 0.2 K/uL (0.00-0.22); BASOPHILS % (AUTO) 4.7 % (0.0-2.0); EOSINOPHILS % (AUTO) 0.6 % (0.0-4.0); HEMATOCRIT 24.7 % (36-48); HEMOGLOBIN 8.1 g/dL (12.0-16.0); LYMPHOCYTES # (AUTO) 0.7 K/uL (2.5-16.5); LYMPHOCYTES % (AUTO) 19.5 % (20.5-51.1); MEAN CORPUSCULAR HEMOGLOBIN 24 pg (27-31); MEAN CORPUSCULAR HGB CONC 33 g/dL (33-37); MEAN CORPUSCULAR VOLUME 74 fL (80-94); MONOCYTES # (AUTO) 0.6 K/uL (0.8-1.0); MONOCYTES % (AUTO) 16.7 % (1.7-9.3); NEUTROPHILS # (AUTO) 2.3 K/uL (1.8-7.7); NEUTROPHILS % (AUTO) 58.5 % (42.2-75.2); PLATELET COUNT (AUTO) 116 K/uL (140-450); RED BLOOD CELL COUNT(AUTO) 3.35 MIL/uL (4.20-5.40); RED CELL DISTRIBUTION WIDTH 12.9 % (11.6-13.7); WHITE BLOOD COUNT (AUTO) 3.8 K/uL (4.8-10.8)
[2017-08-31 08:00] VITALS: BP 137/58
[2017-08-31 08:01] LABS: MAGNESIUM 1.4 mg/dL (1.8-2.4); PHOSPHORUS 2.9 mg/dL (2.5-4.9)
[2017-08-31 08:03] LABS: ANION GAP 13.4 (8-16); CARBON DIOXIDE 23.5 mmol/L (21-32); CREATININE 0.9 mg/dL (0.6-1.3)
[2017-08-31 08:13] LABS: POTASSIUM 2.9 mmol/L (3.5-5.1)
[2017-08-31] MEDS: hydrOXYzine HCL 10 MG TAB PO SCH ×3 (08:26→17:23)
[2017-08-31] MEDS: ATENOLOL 50 MG TAB PO SCH (08:26)
[2017-08-31] MEDS: LOSARTAN 50 MG TAB PO SCH (08:27)
[2017-08-31] MEDS: METHIMAZOLE 5 MG TAB PO SCH ×2 (08:27→21:03)
[2017-08-31] MEDS: PANTOPRAZOLE 40 MG INJ VIAL IVP SCH ×2 (08:27→21:04)
[2017-08-31] MEDS: LEVOFLOXACIN 750 MG/D5W PREMIX 150 ML IV SCH (08:28)
[2017-08-31] MEDS: LACTOBACILLUS RHAMNOSUS GG 1 EACH CAP PO SCH (08:28)
[2017-08-31] MEDS: ASPIRIN 81 MG TAB.CHEW PO SCH (08:28)
--- NOTE | 2017-08-31 08:30 | NUR ---
INFORMED DR FRY ABOUT PATIENT'S POTASSIUM LEVEL OF 2.9 AND MAGNESIUM LEVEL OF 1.4
[2017-08-31 12:00] VITALS: BP 133/59
[2017-08-31] MEDS ORDERED: KCL 20 MEQ/WATER INJ PREMIX 200 ML IV SCH (12:00)
[2017-08-31] MEDS ORDERED: POTASSIUM CHLORIDE 10 MEQ TABER PO SCH (12:00)
[2017-08-31] MEDS ORDERED: FLUTICASONE NASAL 50 MCG/ACTUATION 16 GM BTL NS SCH ×2 (12:00→21:00)
--- NOTE | 2017-08-31 12:00 | NUR ---
RECEIVED REPORT FROM DEYVI CHONG FOR CONTINUITY OF CARE. PATIENT AWAKE A/OX4 LEGALLY BLIND , NO S/S OF RESP DISTRESS NOTED ABLE TO MAKE NEEDS KNOWN. IV SITE LEFT FA GAUGE 24 INTACT AND PATENT. IVF INFUSING WELL. VITALS STABLE WILL CONTINUE TO MONITOR .
[2017-08-31] MEDS ORDERED: POTASSIUM CHLORIDE 40 MEQ, LIDOCAINE 1% 25 MG in NACL 0.9% 250 ML IV SCH (13:00)
[2017-08-31] MEDS ORDERED: MAG SULF 2000 MG/WATER PREMIX 50 ML IV SCH (13:00)
--- NOTE | 2017-08-31 13:00 | NUR ---
NEW IV LINE STARTED ON LEFT HAND GAUGE 22 , IV FLAGYL GIVEN
--- NOTE | 2017-08-31 13:00 | NUR ---
1200 RECEIVED CALL FROM PHILLIP ANN THAT IS REQUESTING SNF PLACEMENT FOR CONTINUED IV ABX AND PT. 1231 CALL PLACED TO [facility] CONTENT CREATION MANAGER NUMBER [phone] AND PROVIDED INFORMATION TO EXCHANGE PT AT [facility] REQUIRING SNF PLACEMENT, CONTENT CREATION MANAGER CM WILL BE CONTACTED. 1250 RECEIVED CALL FROM ELEAZAR AT [facility] AND INFORMATION PROVIDED AND INFORMED HER THAT PT REQUIRES SNF PLACEMENT FOR 7 DAYS OF IV ABX AND PT. PER ELEAZAR SHE WILL ATTEMPT TO FIND SNF PLACEMENT. PROVIDED HER THE DIRECT PHONE NUMBER OF [facility] [phone] AND REQUESTED THAT WHEN SNF PLACEMENT VERIFIED TO CALL UNIT DIRECTLY OR SHE MAY CALL DCM BACK WITH INFORMATION. CALLED PHILLIP ANN AND PROVIDED HER WITH INFORMATION.
--- NOTE | 2017-08-31 13:09 | NUR ---
PT SLEEPING WITH NO SIGNS OF DISTRESS NOTED AT THIS TIME, NO HHN GIVEN
--- NOTE | 2017-08-31 13:26 | NUR ---
FAXED INFO TO NAYE FROM [facility] [phone].
--- NOTE | 2017-08-31 14:00 | NUR ---
HAD BM LOOSE STOOL X3 REDNESS ON PERINEAL ARE NOTIFIED NEW ORDER Z GUARD APPLIED.
[2017-08-31] MEDS ORDERED: LOPERAMIDE 2 MG CAP PO PRN (14:15)
[2017-08-31 16:02] VITALS: BP 128/63
--- NOTE | 2017-08-31 17:00 | NUR ---
REPORT GIVEN TO BESS CHONG AT [facility] DISPATCHER TIME IS 930 PM PATIENT AND HER TWIN SISTER AWARE OF DISCHARGE
[2017-08-31] MEDS ORDERED: IMO2 PO (17:07)
[2017-08-31] MEDS ORDERED: FLONAS NS (17:07)
[2017-08-31] MEDS ORDERED: LACT10CA PO (17:07)
--- NOTE | 2017-08-31 19:31 | NUR ---
ENDORSE THE CARE TO JOSTIN CHONG
--- NOTE | 2017-08-31 19:32 | NUR ---
RECEIVED HANDOFF REPORT FROM AM RN. PATIENT A&OX4. PATIENT DENIES PAIN. IV SITE PATENT AND INTACT. NO SIGNS OR SYMPTOMS OF ACUTE DISTRESS NOTED. CALL LIGHT WITHIN REACH. WILL CONTINUE TO MONITOR.
[2017-08-31 20:00] VITALS: BP 114/49
[2017-08-31] MEDS ORDERED: Z-GUARD PASTE TP SCH (21:00)
[2017-08-31] MEDS: INSULIN DETEMIR 100 UNITS/ML 10 ML VIAL SUBQ SCH (21:15)
--- NOTE | 2017-08-31 21:30 | NUR ---
[facility] IN TO TRANSPORT PATIENT. PATIENT IN STABLE CONDITION. VITAL SIGNS STABLE, ON ROOM AIR. IV TAKEN OUT, TIP INTACT. NO SIGNS OR SYMPTOMS OF ACUTE DISTRESS NOTED. SAFETY MEASURES ENSURED.
[2017-09-01] MEDS ORDERED: FLUCONAZOLE 100 MG TAB PO SCH (09:00)
[2017-09-01 17:04] LABS: FERRITIN 754 ng/mL (15 - 150); TRANSFERRIN 84 mg/dL (200 - 370)
--- NOTE | 2017-09-03 15:38 | NUR ---
RETRO REVIEW. FA[place]ED ER REPORT, H&P AND [place] [facility] [phone] PHONE KACIE [phone]
== END 2017-08-31 22:00 | DRG 871 ==
LOC: MED 11:01 → MTU 14:01
PROVIDERS: ADMIT Family Medicine; ATTEND Family Medicine
DX: A41.9 Sepsis, unspecified organism (principal); N17.0 Acute kidney failure with tubular necrosis; E11.00 Type 2 diabetes mellitus with hyperosmolarity without nonketotic hyperglycemic-hyperosmolar coma (NKHHC); E43 Unspecified severe protein-calorie malnutrition; D68.59 Other primary thrombophilia; E11.21 Type 2 diabetes mellitus with diabetic nephropathy; J18.9 Pneumonia, unspecified organism; E87.0 Hyperosmolality and hypernatremia; Z68.1 Body mass index [BMI] 19.9 or less, adult; E11.40 Type 2 diabetes mellitus with diabetic neuropathy, unspecified; E11.319 Type 2 diabetes mellitus with unspecified diabetic retinopathy without macular edema; E11.51 Type 2 diabetes mellitus with diabetic peripheral angiopathy without gangrene; E83.42 Hypomagnesemia; B37.3 Candidiasis of vulva and vagina; H54.7 Unspecified visual loss; E87.6 Hypokalemia; I10 Essential (primary) hypertension; D50.9 Iron deficiency anemia, unspecified; R31.9 Hematuria, unspecified; K52.9 Noninfective gastroenteritis and colitis, unspecified; E03.9 Hypothyroidism, unspecified; Z59.0 Homelessness; Z88.0 Allergy status to penicillin; Z79.4 Long term (current) use of insulin; Z85.89 Personal history of malignant neoplasm of other organs and systems; Z92.21 Personal history of antineoplastic chemotherapy; Z79.82 Long term (current) use of aspirin
CPT/HCPCS: 36415; 71010; 76770; 80048; 80053; 80305; 81001; 82009; 82150; 82728; 82948; 83540; 83605; 83690; 83735; 83880; 84100; 84439; 84443; 84484; 85025; 85045; 85610; 85730; 86713; 87040; 87045; 87081; 87086; 87177; 89055; 93005; 93970; 93971; 94640; 96361; 96365; 96375; 99291; C1758; C9113; G0482; J1815; J1956; J2001; J2060; J2405; J2916; J3370; J3475; J3480; J3490; J7030; J7060; J7620; Q0092

== ENCOUNTER 2020-04-23 18:13 | Emergency (ER) | payer MEDICARE, OTHER ==
[~2020-04-23] VITALS: Ht 167.6 cm; Wt 44.9 kg
[~2020-04-23 18:13] MED LIST changes: +ASPI-1822 PO; -ASPI81CT89 PO; +FLONAS NS; +IMO2 PO; +LACT10CA PO; -LOSA50TA39 PO; +LOSA50TA66 PO; +METH-1632 PO; -METH-426 PO
[2020-04-23 18:20] VITALS: BP 135/61
[2020-04-23] MEDS ORDERED: ONDANSETRON 4 MG/2 ML VIAL IVP ONE (18:25)
[2020-04-23] MEDS ORDERED: NACL 0.9% 1,000 ML IV ONE (18:25)
--- NOTE | 2020-04-23 18:30 | NUR ---
BIBA FROM HOME WITH COMPLAINTS OF ELEVATED BLOOD SUGAR; BS 533; CAREGIVER CALLED EMS, PT C/O NAUSEA UPON ARRIVAL TO ED PT DENIES ANY FEVER, CP, SOB, OR COUGH AT THIS TIME; PATIENT STATES PAIN OF 0/10 AT THIS TIME; VSS; PATIENT POSITIONED FOR COMFORT; HOB ELEVATED; BEDRAILS UP X2; BED DOWN. ER MD MADE AWARE OF PT STATUS.
[2020-04-23 18:57] LABS: BASOPHILS % (AUTO) 0.3 % (0.0-2.0); EOSINOPHILS # (AUTO) 0.1 K/uL (0-0.4); EOSINOPHILS % (AUTO) 1.3 % (0.0-4.0); HEMATOCRIT 22.8 % (36-48); HEMOGLOBIN 7.5 g/dL (12.0-16.0); LYMPHOCYTES # (AUTO) 1.5 K/uL (2.5-16.5); LYMPHOCYTES % (AUTO) 24.5 % (20.5-51.1); MEAN CORPUSCULAR HEMOGLOBIN 25 pg (27-31); MEAN CORPUSCULAR HGB CONC 33 g/dL (33-37); MEAN CORPUSCULAR VOLUME 75.1 fL (80-94); MONOCYTES # (AUTO) 0.7 K/uL (0.8-1.0); MONOCYTES % (AUTO) 10.5 % (1.7-9.3); NEUTROPHILS % (AUTO) 63.4 % (42.2-75.2); PLATELET COUNT (AUTO) 112 K/uL (140-450); RED BLOOD CELL COUNT(AUTO) 3.03 MIL/uL (4.20-5.40); WHITE BLOOD COUNT (AUTO) 6.3 K/uL (4.8-10.8)
[2020-04-23 19:11] LABS: ALBUMIN 2.3 g/dL (3.4-5.0); ANION GAP 11.9 (8-16); ASPARTATE AMINOTRANSFERASE 20 U/L (15-37); CARBON DIOXIDE 27.5 mmol/L (21-32); CHLORIDE 98 mmol/L (98-107); CREATININE 0.9 mg/dL (0.6-1.3); GFR ARICAN-AMERICAN 81 mL/min (>90); POTASSIUM 3.4 mmol/L (3.5-5.1); SODIUM SERUM 134 mmol/L (136-145); TOTAL BILIRUBIN 0.7 mg/dL (0.0-1.0); UREA NITROGEN, BLOOD 16 mg/dL (7-18)
[2020-04-23 19:18] LABS: GLUCOSE 510 mg/dL (74-106)
[2020-04-23 19:19] LABS: ACETONE, SERUM NEGATIVE (NEGATIVE)
[2020-04-23 19:25] LABS: APPEARANCE,URINE SL CLOUDY (CLEAR); BILIRUBIN,URINE NEGATIVE (NEGATIVE); BLOOD, URINE 2+ (NEGATIVE); COLOR,URINE YELLOW (YELLOW); LEUKOCYTE ESTERASE ,URINE 1+ (NEGATIVE); NITRITE, URINE NEGATIVE (NEGATIVE); UGLUCOSE 3+ (NEGATIVE)
--- NOTE | 2020-04-23 19:26 | NUR ---
RECEIVED REPORT FROM CASTILLO GONZALEZ. WILL CONT CARE AT THIS TIME.
--- NOTE | 2020-04-23 19:26 | NUR ---
Pt report given to CASTILLO Felix. Transfer of care at this time.
[2020-04-23 19:29] LABS: RBC,URINE 20-50 /HPF (0-5); WBC,URINE 20-60 /HPF (0-5); YEAST,URINE Moderate /HPF (None Seen)
[2020-04-23] MEDS ORDERED: INSULIN REGULAR, HUMAN 100 UNIT/ML VIAL IVP ONE ×2 (19:35→20:35)
--- NOTE | 2020-04-23 20:27 | NUR ---
ACCU CHECK AFTER 10 UNIT OF INSULIN; 346 BS.
[2020-04-23] MEDS ORDERED: cephALEXin 500 MG CAP PO ONE (20:35)
--- NOTE | 2020-04-23 21:27 | NUR ---
ACCU CHECK AFTER GIVING 5 UNITS OF INSULIN IVP; BS NOW IS 251. CLINTON NEGRETE AWARE.
[2020-04-23 22:20] VITALS: BP 148/40
--- NOTE | 2020-04-23 22:20 | NUR ---
Patient discharged with v/s stable. Written and verbal after care instructions given and explained. Patient alert, oriented and verbalized understanding of instructions. Wheel Chair Assisted with by caregiver. All questions addressed prior to discharge. ID band removed. Patient advised to follow up with PMD. Rx of CEPHALEXIN given. Patient educated on indication of medication including possible reaction and side effects. Opportunity to ask questions provided and answered.
== END 2020-04-23 22:20 | disposition home or self-care (01) ==
LOC: MED 18:13
DX: E11.65 Type 2 diabetes mellitus with hyperglycemia (principal); D64.9 Anemia, unspecified; N39.0 Urinary tract infection, site not specified; I10 Essential (primary) hypertension; Z88.0 Allergy status to penicillin; Z85.9 Personal history of malignant neoplasm, unspecified; Z79.899 Other long term (current) drug therapy
CPT/HCPCS: 36415; 80053; 81001; 82009; 85025; 87086; 96361; 96374; 96375; 96376; 99284; J1815; J2405; J7030; 87186